=== PATIENT | female | born 2000 | race Caucasian/White ===

== ENCOUNTER 2022-08-07 13:20 | Day surgery (SDC) | payer OTHER ==
[~2022-08-07] VITALS: Ht 167.6 cm; Wt 72.5 kg
[~2022-08-07 13:20] MED LIST: LIDOCAINE 2% MDV 20ML VIAL As Ordered ONE; NS 1,000 ML IV ONE; PROA1AER2 INH; [UNRECOGNIZED DRUG - OTHER]; fentaNYL 100 MCG/2 ML INJECTION As Ordered ONE; propofoL 200 MG/20 ML VIAL As Ordered ONE
[2022-08-07] MEDS ORDERED: propofoL 200 MG/20 ML VIAL As Ordered ONE (15:08)
[2022-08-07 15:57] VITALS: BP 122/66; O2SAT 100
== END 2022-08-07 16:00 | disposition home or self-care (01) ==
LOC: M OPP 13:20
PROVIDERS: ATTEND Internal Medicine Gastroenterology
DX: R76.8 Other specified abnormal immunological findings in serum (principal); K21.9 Gastro-esophageal reflux disease without esophagitis; L30.8 Other specified dermatitis; F31.9 Bipolar disorder, unspecified; G43.909 Migraine, unspecified, not intractable, without status migrainosus; J45.909 Unspecified asthma, uncomplicated; F17.290 Nicotine dependence, other tobacco product, uncomplicated; Z79.899 Other long term (current) drug therapy
CPT/HCPCS: 43239; 88305; J3010